=== PATIENT | male | born 1965 | race African-American/Black ===

== ENCOUNTER 2021-09-09 07:07 | Outpatient (REF) | payer SELFPAY ==
[2021-09-09 07:11] LABS: MANUAL DIFF FLAG NO
[2021-09-09 07:22] LABS: Basophils Percent Auto 0.6 % (0-2); Eosinophils Percent Auto 0.6 % (0-4); Hematocrit 34.9 % (42.0-52.0); Hemoglobin 10.7 g/dl (14.0-18.0); Imm Gran Abs Auto 0.05 X10*3/uL (0.00-0.03); Lymphocytes Absolute Auto 1.4 X10*3/uL (1.2-4.9); Lymphocytes Percent Auto 26.3 % (20-40); Mean Corpuscular HGB Conc 30.7 g/dl (31.0-36.0); Mean Corpuscular Hemoglobin 30.6 pg (27.0-33.0); Mean Corpuscular Volume 99.7 fL (80.0-98.0); Mean Platelet Volume 11.6 fL (9.4-12.4); Monocytes Absolute Auto 0.6 X10*3/uL (0.1-1.2); Monocytes Percent Auto 10.6 % (2-11); Neutrophils Absolute Auto 3.2 x10*3/uL (2.0-8.3); Neutrophils Percent Auto 60.9 % (45-73); Platelet Count 195 X10*3/uL (160-400); Red Cell Distribution Width 17.8 % (11.0-16.0); White Blood Count 5.2 X10*3/uL (4.8-10.8)
[2021-09-09 07:24] LABS: NRBC Pct Auto 1.9 /100WBC (0.0-0.2)
[2021-09-09 07:59] LABS: Alanine Aminotransferase 708 U/L (0-40); Albumin Level 3.6 g/dL (3.5-5.0); Alkaline Phosphatase 577 U/L (39-117); Anion Gap 32 (12-20); Aspartate Amino Transferase 1462 U/L (5-37); Bilirubin Total 1.3 mg/dL (0.0-1.0); Blood Urea Nitrogen 72 mg/dL (9-16); Calcium 7.7 mg/dL (8.4-10.2); Carbon Dioxide 15 mmol/L (22-29); Chloride 91 mmol/L (96-108); Estimated Glomerular Filt Rate 4; Glucose Random 163 mg/dL (60-115); Sodium 131 mmol/L (135-145); Total Protein 7.7 g/dL (6.5-8.0)
== END 2021-09-09 07:08 | disposition home or self-care (01) ==
LOC: HO.MMNH1L 07:07
PROVIDERS: Visit Provider Family Medicine
DX: N18.6 End stage renal disease (principal); E11.9 Type 2 diabetes mellitus without complications
CPT/HCPCS: 36415; 80053; 85025

== ENCOUNTER 2021-09-20 05:40 | Outpatient (REF) | payer OTHER, SELFPAY | END 2021-09-20 05:41 | disposition home or self-care (01) | LOC: HO.MMNH1L 05:40 | PROVIDERS: Visit Provider Family Medicine | DX: Z13.89 Encounter for screening for other disorder (principal) ==